=== PATIENT | male | born 1955 | race Caucasian/White ===

== ENCOUNTER 2023-05-31 17:06 | Emergency (ER) | payer OTHER, SELFPAY ==
[2023-05-31 17:28] VITALS: BP 188/110; PULSE 98; RESP 16; TEMP 36.4; O2SAT 96; BMI 23.5
--- NOTE | 2023-05-31 17:54 | ED_ITS ---
HPI - Extremity Problem <Lauren Maldonado PA-C - Last Filed: 05/31/23 18:16> General Chief complaint: Extremity Problem,Nontraumatic Stated complaint: Left side pain, back and leg... Time Seen by Provider: 05/31/23 17:41 Source: patient and family Mode of arrival: Ambulatory History of Present Illness HPI Narrative: 67-year-old male with past medical history chronic lower back pain, hypertension, hypothyroidism presents to the ED with 3 weeks of acute on chronic lower back pain. Patient states that there is no new trauma, but his lower back pain has worsened over the last 3 weeks and he has not been able to get any relief with Aleve. Patient states that the pain is in the left lower back, radiating down the back of his left leg. Patient denies numbness, tingling, weakness, saddle paresthesias, urinary hesitancy, urinary incontinence, bowel incontinence. Patient denies fever, chills, chest pain, shortness of breath, dysuria, urinary urgency, urinary frequency. Patient states that he took some gabapentin this morning from his which gave him some relief. [facility], sent him to the ED since it would be more experience for him to get some immediate pain relief here. Related Data Home Medications Medication Instructions Recorded Confirmed [ACID REFLUX PILL] ##0 04/19/17 [BLOOD PRESSURE MED] ##0 04/19/17 multivitamin (Multiple Vitamins 1 tab PO QDAY ##0 04/19/17 tablet) Previous Rx's Medication Instructions Recorded cyclobenzaprine 10 mg tablet 10 mg PO TID PRN muscle spasm 5 05/31/23 days #15 tabs gabapentin 100 mg capsule 100 mg PO TID 30 days #90 caps 05/31/23 Allergies Allergy/AdvReac Type Severity Reaction Status Date / Time No Known Drug Allergies Allergy Verified 05/31/23 18:14 Review of Systems <Lauren Maldonado PA-C - Last Filed: 05/31/23 18:16> Constitutional Constitutional: Denies chills, Denies fatigue, Denies fever(s), Denies frequent falls, Denies lethargy and Denies weakness Eyes Eyes: Denies change in vision, Denies eye discharge, Denies irritation and Denies loss of vision ENT Ears, Nose, Mouth, and Throat: Denies change in voice, Denies dizziness, Denies neck pain, Denies sore throat and Denies throat swelling Cardiovascular Cardiovascular: Denies chest pain, Denies irregular heart rhythm, Denies lightheadedness, Denies palpitations, Denies dyspnea, Denies dyspnea on exertion and Denies orthopnea Respiratory Respiratory: Denies cough, Denies dyspnea, Denies dyspnea on exertion and Denies wheezing Gastrointestinal Gastrointestinal: Denies abdominal pain, Denies change in bowel habits, Denies diarrhea, Denies nausea and Denies vomiting Musculoskeletal Musculoskeletal: Reports back pain, Denies neck pain, Denies numbness and Reports radiating pain into limb Integumentary/Breasts Skin/Breast: Denies pruritus, Denies erythema, Denies rash and Denies wounds Neurologic Neurologic: Denies behavioral changes, Denies confusion, Denies dizziness, Denies frequent falls, Denies loss of vision, Denies numbness and Denies weakness Psychiatric Psychiatric: Denies anxiety, Denies behavioral changes, Denies confusion, Denies depression, Denies homicidal ideation and Denies suicidal ideation Endocrine Endocrine: Denies fatigue, Denies flushing and Denies palpitations Hematologic/Lymphatic Hematologic/Lymphatic: Denies easy bruising Allergic/Immunologic Allergic/Immunologic: Denies urticaria, Denies throat swelling and Denies wheezing Patient History <Lauren Maldonado PA-C - Last Filed: 05/31/23 18:16> Social History Smoking Status: Current every day smoker Smoking Status: Current every day smoker tobacco type: cigarettes Substance Use Type: does not use Exam <Lauren Maldonado PA-C - Last Filed: 05/31/23 18:16> Narrative Exam Narrative: Const General:?cooperative, healthy appearing and comfortable [facility] Head:?normal to inspection Ears:?hearing grossly normal bilaterally Nose:?external nose normal Face and sinus:?normal facial exam and sinuses nontender Mouth:?oral mucosae normal Throat:?posterior oropharynx normal Eyes General:?appearance normal, both eyes and all related structures Neck Neck:?normal visual inspection and no lymphadenopathy noted Resp Effort & Inspection:?normal respiratory effort Auscultation:?clear to auscultation bilaterally Cardio Rate:?regular rate Rhythm:?regular rhythm Musculoskeletal No midline tenderness to palpation. No paraspinal tenderness to palpation. There is full range of motion. Strength and sensation is intact. Gait is normal. Neuro General:?patient alert, patient awake and patient oriented x3 Initial Vital Signs Initial Vital Signs: Vital Signs Temperature 97.5 F L 05/31/23 17:28 Pulse Rate 98 H 05/31/23 17:28 Respiratory Rate 16 05/31/23 17:28 Blood Pressure 188/110 H 05/31/23 17:28 Pulse Oximetry 96 05/31/23 17:28 Oxygen Delivery Method Room Air 05/31/23 17:28 <Rabia Do DO - Last Filed: 05/31/23 18:59> Initial Vital Signs Initial Vital Signs: Vital Signs Temperature 97.5 F L 05/31/23 17:28 Pulse Rate 98 H 05/31/23 17:28 Respiratory Rate 16 05/31/23 17:28 Blood Pressure 188/110 H 05/31/23 17:28 Pulse Oximetry 96 05/31/23 17:28 Oxygen Delivery Method Room Air 05/31/23 17:28 Course <Lauren Maldonado PA-C - Last Filed: 05/31/23 18:16> Orders Ordered: Discontinued Medications Cyclobenzaprine HCl (Cyclobenzaprine 10 Mg Tablet) 10 mg PO NOW ONE Stop: 05/31/23 18:15 Last Admin: 05/31/23 18:19 Dose: 10 mg Documented By: RB Ketorolac Tromethamine (Ketorolac 30 Mg/Ml Vial) 30 mg IM NOW ONE Stop: 05/31/23 18:15 Last Admin: 05/31/23 18:19 Dose: 30 mg Documented By: RB Vital Signs Vital signs: Vital Signs - 8 hr 05/31/23 17:28 05/31/23 18:24 Temperature 97.5 F L 98.1 F Pulse Rate 98 H 87 Respiratory Rate 16 18 Blood Pressure 188/110 H 165/103 H Pulse Oximetry 96 97 Oxygen Delivery Method Room Air Room Air <Rabia Do DO - Last Filed: 05/31/23 18:59> Orders Ordered: Discontinued Medications Cyclobenzaprine HCl (Cyclobenzaprine 10 Mg Tablet) 10 mg PO NOW ONE Stop: 05/31/23 18:15 Last Admin: 05/31/23 18:19 Dose: 10 mg Documented By: RB Ketorolac Tromethamine (Ketorolac 30 Mg/Ml Vial) 30 mg IM NOW ONE Stop: 05/31/23 18:15 Last Admin: 05/31/23 18:19 Dose: 30 mg Documented By: RB Vital Signs Vital signs: Vital Signs - 8 hr 05/31/23 17:28 05/31/23 18:24 Temperature 97.5 F L 98.1 F Pulse Rate 98 H 87 Respiratory Rate 16 18 Blood Pressure 188/110 H 165/103 H Pulse Oximetry 96 97 Oxygen Delivery Method Room Air Room Air MDM - Extremity (Nontraumatic) <Lauren Maldonado PA-C - Last Filed: 05/31/23 18:16> MDM Narrative Medical decision making narrative: 67-year-old male with past medical history chronic lower back pain, hypertension, hypothyroidism presents to the ED with 3 weeks of acute on chronic lower back pain. From the history and physical, patient's symptoms appear to be a acute exacerbation of the chronic lower back pain. No red flags suspicious for cauda equina or other spinal emergency. Patient was given ketorolac and Flexeril in the ED. Will prescribe gabapentin nad a muscle relaxant. Recommend also using lidocaine patches, Aleve, heat packs for further relief. Patient agrees to follow[facility]up with [facility]. ED return precautions discussed with patient. Patient verbalized understanding. Medical records reviewed: Yes Discharge Plan Departure Patient Disposition: Home Clinical Impression: Lower back pain Qualifiers: Chronicity: unspecified Back pain laterality: left Sciatica presence: with sciatica Sciatica laterality: sciatica of left side Qualified Code(s): M54.42 - Lumbago with sciatica, left side Instructions: Low Back Pain Activity Restrictions/Additional Instructions: You were evaluated in the ED today for lower back pain. Your symptoms today appear to be a acute exacerbation of a chronic back problem. You are being prescribed gabapentin and a muscle relaxant. You may take this in addition to a leave, lidocaine patches, heat packs. Please follow-up with your [facility] doctor as soon as possible for further workup. Return to the ED if you have worsening symptoms, numbness, tingling, weakness, urinary difficulties. Prescriptions: New gabapentin 100 mg capsule 100 mg PO TID 30 Days Qty: 90 0RF cyclobenzaprine 10 mg tablet 10 mg PO TID PRN (Reason: muscle spasm) 5 Days Qty: 15 0RF No Action multivitamin [Multiple Vitamins] 1 EACH tablet 1 tab PO QDAY Qty: 0 [ACID REFLUX PILL] Qty: 0 [BLOOD PRESSURE MED] Qty: 0 Stand Alone Forms: Patient Portal/API ED Sign-out <Rabia Do, DO - Last Filed: 05/31/23 18:59> Cosign ED Attending Cosignature Attestation: I was available for consultation.
[2023-05-31] MEDS: CYCLOBENZAPRINE 10 MG TABLET PO (18:19)
[2023-05-31] MEDS: KETOROLAC 30 MG/ML VIAL IM (18:19)
[2023-05-31 18:24] VITALS: BP 165/103; PULSE 87; RESP 18; TEMP 36.7; O2SAT 97
== END 2023-05-31 18:26 | disposition home or self-care (01) ==
PROVIDERS: Emergency Provider Student in an Organized Health Care Education/Training Program
DX: M54.42 Lumbago with sciatica, left side (principal)
CPT/HCPCS: 96372; 99283; J1885

== ENCOUNTER 2024-11-11 06:10 | Observation (INO) | payer OTHER, SELFPAY ==
[2024-11-11] VITALS (18 sets, daily range): BP systolic 121–201; BP diastolic 62–106; PULSE 71–95; RESP 14–24; TEMP 35.7–36.3; O2SAT 89–98; BMI 24.3
--- NOTE | 2024-11-11 06:24 | EKG_ITS ---
[address] [address] Test Date: 2024-11-11 Pat Name: Noah Sher Department: Room: Gender: Male Fisher Weir: DMITRY ARLEN : 1955 Requested By: Order Number: [id number] Reading MD: López Saucedo MD Measurements Intervals [place] Rate: 87 P: 95 OR: 164 QRS: 258 QRSD: 68 T: 77 QT: 330 QTc: 397 Interpretive Statements Suspect arm lead reversal, interpretation assumes no reversal Normal sinus rhythm Right superior axis deviation Septal infarct , age undetermined NO PRIOR TRACING Electronically Signed On 11-11-2024 14:08:23 PDT by López Saucedo MD
[2024-11-11] MEDS: ALBUTEROL 2.5 MG/3 ML NEB (ADULT) INH ×2 (06:25→06:36)
--- NOTE | 2024-11-11 06:34 | ED_ITS ---
HPI - SOB/Dyspnea <López Sifuentes, DO - Last Filed: 11/11/24 20:09> General Chief Complaint: Shortness of Breath/Dyspnea Stated Complaint: SOB x 2 days, today is worse, congested Time Seen by Provider: 11/11/24 06:14 Source: patient Mode of arrival: Ambulatory Limitations: no limitations History of Present Illness HPI Narrative: 69-year-old gentleman history of high blood pressure, thyroid disease, smoker presents with cough runny nose and shortness of breath that started a month ago but worse today as he woke up feeling smothered. He has cut back on smoking and is down to 3 cigarettes a day. Patient denies fever, chills, body aches, sore throat, nausea, vomiting, diarrhea, or sick contacts. He has never been formally diagnosed with asthma or COPD or emphysema and does not have any inhalers or nebulizers at home. Other than what is stated 14 point review of system is negative. Related Data Home Medications Medication Instructions Recorded Confirmed metoprolol tartrate 50 mg tablet 50 mg PO BID ##0 04/19/17 11/11/24 aspirin 81 mg tablet 81 mg PO DAILY 11/11/24 11/11/24 gabapentin 300 mg tablet 300 mg PO BEDTIME 11/11/24 11/11/24 hydrochlorothiazide 25 mg tablet 25 mg PO DAILY 11/11/24 11/11/24 levothyroxine 125 mcg tablet 125 mcg PO DAILY 11/11/24 11/11/24 (Synthroid) sertraline 50 mg tablet 50 mg PO DAILY 11/11/24 11/11/24 Allergies Allergy/AdvReac Type Severity Reaction Status Date / Time No Known Drug Allergies Allergy Verified 05/31/23 18:14 Review of Systems <López Sifuentes, DO - Last Filed: 11/11/24 20:09> Review of Systems ROS Unobtainable: All systems reviewed & are unremarkable except as noted in HPI and below Patient History <López Sifuentes, DO - Last Filed: 11/11/24 20:09> Medical History (Updated 11/11/24 @ 18:37 by Juany Reddy MD) Hypothyroidism HTN (hypertension) Family History (Updated 11/11/24 @ 18:38 by Juany Reddy MD) Father Emphysema lung Sister Respiratory abnormalities Social History Smoking Status: Current every day smoker alcohol intake: former tobacco type: cigarettes Exam <López Sifuentes, - Last Filed: 11/11/24 20:09> Narrative Exam Narrative: GENERAL: [69] year old patient appears stated age. Well-developed patient, in mild distress but speaking in full sentences HEAD: Atraumatic. Normocephalic. EYES: Pupils equal round and reactive. Extraocular motions intact. No scleral icterus. No injection or drainage. ENT: Nose without bleeding, purulent drainage. Throat without erythema, tonsillar hypertrophy or exudate. Airway patent. NECK: Trachea midline. Non tender CARDIOVASCULAR: Regular rate and rhythm without murmurs, gallops, or rubs. RESPIRATORY: Diffuse wheezes b/l throughout. GASTROINTESTINAL: Abdomen soft, non-tender, nondistended. EXTREMITIES: No edema or joint tenderness. BACK: Nontender without deformity or crepitance. No flank tenderness. NEURO: AOx3. SKIN: No rash or erythema of visible areas Initial Vital Signs Initial Vital Signs: Vital Signs Temperature 97.4 F L 11/11/24 06:15 Pulse Rate 95 H 11/11/24 06:15 Respiratory Rate 22 11/11/24 06:15 Blood Pressure 197/106 H 11/11/24 06:15 Pulse Oximetry 93 11/11/24 06:15 Oxygen Delivery Method Room Air 11/11/24 06:15 <Rabia Do DO - Last Filed: 11/11/24 12:13> Initial Vital Signs Initial Vital Signs: Vital Signs Temperature 97.4 F L 11/11/24 06:15 Pulse Rate 95 H 11/11/24 06:15 Respiratory Rate 22 11/11/24 06:15 Blood Pressure 197/106 H 11/11/24 06:15 Pulse Oximetry 93 11/11/24 06:15 Oxygen Delivery Method Room Air 11/11/24 06:15 Course <López Sifuentes, DO - Last Filed: 11/11/24 20:09> Orders Ordered: ED Orders 11/12/24 05:00 Basic Metabolic Panel Routine Complete Blood Count AUTO DIFF Routine Acetaminophen (Acetaminophen 325 Mg Tablet) 650 mg PO Q6H PRN PRN Reason: Fever/Mild Pain (1-3) Albuterol (Albuterol 2.5 Mg/3 Ml Neb (Adult)) 2.5 mg INH [id number] PRN PRN Reason: Shortness Of Breath Or Wheezing Albuterol/Ipratropium (Albuterol/Ipratropium 3 Ml Ampul) 3 ml INH [id number] [facility] Last Admin: 11/11/24 14:24 Dose: 3 ml Documented By: SAT Aspirin (Aspirin Ec 81 Mg Tablet) 81 mg PO DAILY [facility] Gabapentin (Gabapentin 300 Mg Capsule) 300 mg PO BEDTIME [facility] Hydrochlorothiazide (Hydrochlorothiazide 25 Mg Tablet) 25 mg PO DAILY [facility] Levothyroxine Sodium (Levothyroxine 125 Mcg Tablet) 125 mcg PO DAILY [facility] [place] Methylprednisolone (Methylprednisolone 125 Mg/2 Ml Vial) 80 mg IV Q8H [facility] Last Admin: 11/11/24 18:25 Dose: 80 mg Documented By: Admin: 11/11/24 09:26 Dose: 80 mg Documented By: JUSTYN Metoprolol Tartrate (Metoprolol Ir 50 Mg Tablet) 50 mg PO BID [facility] Naloxone HCl (Naloxone 0.4 Mg/Ml Vial) 0.2 mg IV Q2MIN PRN PRN Reason: Opiate Reversal Sertraline HCl (Sertraline 50 Mg Tablet) 50 mg PO DAILY [facility] Discontinued Medications Albuterol (Albuterol 2.5 Mg/3 Ml Neb (Adult)) 2.5 mg INH NOW ONE Stop: 11/11/24 06:23 Last Admin: 11/11/24 06:25 Dose: 2.5 mg Documented By: MR Albuterol (Albuterol 2.5 Mg/3 Ml Neb (Adult)) 2.5 mg INH NOW ONE Stop: 11/11/24 06:34 Last Admin: 11/11/24 06:36 Dose: 2.5 mg Documented By: MR Albuterol/Ipratropium (Albuterol/Ipratropium 3 Ml Ampul) 3 ml INH NOW ONE Stop: 11/11/24 07:44 Last Admin: 11/11/24 07:46 Dose: 3 ml Documented By: ARNOLDO Methylprednisolone (Methylprednisolone 125 Mg/2 Ml Vial) 125 mg IV NOW ONE Stop: 11/11/24 06:40 Last Admin: 11/11/24 06:54 Dose: 125 mg Documented By: RLC Vital Signs Vital signs: Vital Signs - 8 hr 11/11/24 06:15 11/11/24 06:31 11/11/24 06:31 Temperature 97.4 F L Pulse Rate 95 H 84 Respiratory Rate 22 20 Blood Pressure 197/106 H 201/89 H Pulse Oximetry 93 98 Oxygen Delivery Method Room Air Oxygen Flow Rate 11/11/24 06:48 11/11/24 07:00 11/11/24 07:00 Temperature Pulse Rate 84 78 Respiratory Rate 24 14 Blood Pressure 161/93 H 150/83 H Pulse Oximetry 98 94 Oxygen Delivery Method Nasal Cannula Oxygen Flow Rate 5 11/11/24 07:30 11/11/24 07:30 11/11/24 07:46 Temperature Pulse Rate 76 78 Respiratory Rate 21 20 Blood Pressure 173/89 H Pulse Oximetry 89 L 93 Oxygen Delivery Method Room Air Nasal Cannula Oxygen Flow Rate 1 11/11/24 08:00 11/11/24 08:00 11/11/24 08:30 Temperature Pulse Rate 75 73 Respiratory Rate 16 18 Blood Pressure 138/87 Pulse Oximetry 93 91 Oxygen Delivery Method Nasal Cannula Room Air Oxygen Flow Rate 2 11/11/24 08:30 11/11/24 09:00 11/11/24 09:00 Temperature Pulse Rate 77 Respiratory Rate 17 Blood Pressure 144/76 H 154/84 H Pulse Oximetry 91 Oxygen Delivery Method Room Air Nasal Cannula Oxygen Flow Rate 2 11/11/24 09:06 Temperature Pulse Rate Respiratory Rate Blood Pressure Pulse Oximetry 91 Oxygen Delivery Method Room Air Oxygen Flow Rate <Rabia Do, DO - Last Filed: 11/11/24 12:13> Orders Ordered: ED Orders 11/12/24 05:00 Basic Metabolic Panel Routine Complete Blood Count AUTO DIFF Routine Acetaminophen (Acetaminophen 325 Mg Tablet) 650 mg PO Q6H PRN PRN Reason: Fever/Mild Pain (1-3) Albuterol (Albuterol 2.5 Mg/3 Ml Neb (Adult)) 2.5 mg INH [id number] PRN PRN Reason: Shortness Of Breath Or Wheezing Albuterol/Ipratropium (Albuterol/Ipratropium 3 Ml Ampul) 3 ml INH [id number] [facility] Last Admin: 11/11/24 14:24 Dose: 3 ml Documented By: SAT Aspirin (Aspirin Ec 81 Mg Tablet) 81 mg PO DAILY [facility] Gabapentin (Gabapentin 300 Mg Capsule) 300 mg PO BEDTIME [facility] Hydrochlorothiazide (Hydrochlorothiazide 25 Mg Tablet) 25 mg PO DAILY [facility] [place] Levothyroxine Sodium (Levothyroxine 125 Mcg Tablet) 125 mcg PO DAILY [facility] [place] Methylprednisolone (Methylprednisolone 125 Mg/2 Ml Vial) 80 mg IV Q8H [facility] Last Admin: 11/11/24 18:25 Dose: 80 mg Documented By: Admin: 11/11/24 09:26 Dose: 80 mg Documented By: JUSTYN Metoprolol Tartrate (Metoprolol Ir 50 Mg Tablet) 50 mg PO BID [facility] Naloxone HCl (Naloxone 0.4 Mg/Ml Vial) 0.2 mg IV Q2MIN PRN PRN Reason: Opiate Reversal Sertraline HCl (Sertraline 50 Mg Tablet) 50 mg PO DAILY [facility] Discontinued Medications Albuterol (Albuterol 2.5 Mg/3 Ml Neb (Adult)) 2.5 mg INH NOW ONE Stop: 11/11/24 06:23 Last Admin: 11/11/24 06:25 Dose: 2.5 mg Documented By: MR Albuterol (Albuterol 2.5 Mg/3 Ml Neb (Adult)) 2.5 mg INH NOW ONE Stop: 11/11/24 06:34 Last Admin: 11/11/24 06:36 Dose: 2.5 mg Documented By: MR Albuterol/Ipratropium (Albuterol/Ipratropium 3 Ml Ampul) 3 ml INH NOW ONE Stop: 11/11/24 07:44 Last Admin: 11/11/24 07:46 Dose: 3 ml Documented By: ARNOLDO Methylprednisolone (Methylprednisolone 125 Mg/2 Ml Vial) 125 mg IV NOW ONE Stop: 11/11/24 06:40 Last Admin: 11/11/24 06:54 Dose: 125 mg Documented By: RLC Vital Signs Vital signs: Vital Signs - 8 hr 11/11/24 06:15 11/11/24 06:31 11/11/24 06:31 Temperature 97.4 F L Pulse Rate 95 H 84 Respiratory Rate 22 20 Blood Pressure 197/106 H 201/89 H Pulse Oximetry 93 98 Oxygen Delivery Method Room Air Oxygen Flow Rate 11/11/24 06:48 11/11/24 07:00 11/11/24 07:00 Temperature Pulse Rate 84 78 Respiratory Rate 24 14 Blood Pressure 161/93 H 150/83 H Pulse Oximetry 98 94 Oxygen Delivery Method Nasal Cannula Oxygen Flow Rate 5 11/11/24 07:30 11/11/24 07:30 11/11/24 07:46 Temperature Pulse Rate 76 78 Respiratory Rate 21 20 Blood Pressure 173/89 H Pulse Oximetry 89 L 93 Oxygen Delivery Method Room Air Nasal Cannula Oxygen Flow Rate 1 11/11/24 08:00 11/11/24 08:00 11/11/24 08:30 Temperature Pulse Rate 75 73 Respiratory Rate 16 18 Blood Pressure 138/87 Pulse Oximetry 93 91 Oxygen Delivery Method Nasal Cannula Room Air Oxygen Flow Rate 2 11/11/24 08:30 11/11/24 09:00 11/11/24 09:00 Temperature Pulse Rate 77 Respiratory Rate 17 Blood Pressure 144/76 H 154/84 H Pulse Oximetry 91 Oxygen Delivery Method Room Air Nasal Cannula Oxygen Flow Rate 2 11/11/24 09:06 Temperature Pulse Rate Respiratory Rate Blood Pressure Pulse Oximetry 91 Oxygen Delivery Method Room Air Oxygen Flow Rate MDM - SOB/Dyspnea <López Sifuentes, DO - Last Filed: 11/11/24 20:09> Lab Data 11/11/24 06:20 11/11/24 06:20 Labs: Lab Results 11/11/24 11/11/24 Range/Units 06:20 06:45 WBC 8.1 (4.5-11.0) X10^3/uL RBC 5.99 H (4.5-5.9) X10^6/uL Hgb 17.7 H (13.5-17.5) g/dL Hct 50.9 (41-53) % MCV 85.0 (80-100) fL MCH 29.6 (26-34) PG MCHC 34.9 (30-36) % RDW 18.3 H (11.6-14.8) % Plt Count 449 H (150-400) X10^3/uL Neut % (Auto) 75.4 H (50-75) % Lymph % (Auto) 14.7 L (25-40) % [place] % (Auto) 6.9 (3-14) % Eos % (Auto) 1.7 L (2-4) % Baso % (Auto) 1.3 (0-2) % Neut # (Auto) 6100 (6733-8735) /uL Lymph # (Auto) 1200 (5279-4209) /uL [place] # (Auto) 600 (0-900) /uL Eos # (Auto) 100 (0-450) /uL Baso # (Auto) 100 (0-100) /uL Sodium 133 L (137-145) mmol/L Potassium 3.8 (3.4-5.1) mmol/L Chloride 94 L (98-107) mmol/L Carbon Dioxide 30 (22-32) mmol/L BUN 18 (9-20) mg/dL Creatinine 0.89 (0.66-1.25) mg/dL Estimated GFR > 60 (>60) mL/min BUN/Creatinine Ratio 20.2 (6-22) Glucose 103 H (70-99) mg/dL Calcium 9.5 (8.4-10.2) mg/dL Total Bilirubin 0.8 (0.2-1.3) mg/dL AST 38 (17-59) IU/L ALT 23 (<50) IU/L Alkaline Phosphatase 62 (38-126) U/L Total Creatine Kinase 71 (55-170) U/L Troponin I < 0.012 (0.01-0.034) ng/mL NT-Pro-B Natriuret Pep 43 (<125) pg/mL Total Protein 7.6 (6.3-8.2) g/dL Albumin 4.7 (3.5-5.0) g/dL Globulin 2.9 (1.7-4.1) g/dL Albumin/Globulin Ratio 1.6 (1.0-2.8) Lipase 72 (23-300) U/L SARS-CoV-2 (PCR) Negative (Negative) Influenza A (RT-PCR) Flu a negative (NEGATIVE) Influenza B (RT-PCR) Flu b negative (NEGATIVE) RSV (PCR) Negative (Negative) ECG Data Interpretation: NSR RAD HR 87 MD 164 QRS [address]-t wave change No previous EKG to compare against <Rabia Do, DO - Last Filed: 11/11/24 12:13> Lab Data Labs: Lab Results 11/11/24 11/11/24 Range/Units 06:20 06:45 WBC 8.1 (4.5-11.0) X10^3/uL RBC 5.99 H (4.5-5.9) X10^6/uL Hgb 17.7 H (13.5-17.5) g/dL Hct 50.9 (41-53) % MCV 85.0 (80-100) fL MCH 29.6 (26-34) PG MCHC 34.9 (30-36) % RDW 18.3 H (11.6-14.8) % Plt Count 449 H (150-400) X10^3/uL Neut % (Auto) 75.4 H (50-75) % Lymph % (Auto) 14.7 L (25-40) % [place] % (Auto) 6.9 (3-14) % Eos % (Auto) 1.7 L (2-4) % Baso % (Auto) 1.3 (0-2) % Neut # (Auto) 6100 (5339-5244) /uL Lymph # (Auto) 1200 (7151-0186) /uL [place] # (Auto) 600 (0-900) /uL Eos # (Auto) 100 (0-450) /uL Baso # (Auto) 100 (0-100) /uL Sodium 133 L (137-145) mmol/L Potassium 3.8 (3.4-5.1) mmol/L Chloride 94 L (98-107) mmol/L Carbon Dioxide 30 (22-32) mmol/L BUN 18 (9-20) mg/dL Creatinine 0.89 (0.66-1.25) mg/dL Estimated GFR > 60 (>60) mL/min BUN/Creatinine Ratio 20.2 (6-22) Glucose 103 H (70-99) mg/dL Calcium 9.5 (8.4-10.2) mg/dL Total Bilirubin 0.8 (0.2-1.3) mg/dL AST 38 (17-59) IU/L ALT 23 (<50) IU/L Alkaline Phosphatase 62 (38-126) U/L Total Creatine Kinase 71 (55-170) U/L Troponin I < 0.012 (0.01-0.034) ng/mL NT-Pro-B Natriuret Pep 43 (<125) pg/mL Total Protein 7.6 (6.3-8.2) g/dL Albumin 4.7 (3.5-5.0) g/dL Globulin 2.9 (1.7-4.1) g/dL Albumin/Globulin Ratio 1.6 (1.0-2.8) Lipase 72 (23-300) U/L SARS-CoV-2 (PCR) Negative (Negative) Influenza A (RT-PCR) Flu a negative (NEGATIVE) Influenza B (RT-PCR) Flu b negative (NEGATIVE) RSV (PCR) Negative (Negative) Imaging Data Chest x-ray: Radiologist's Impression: Preliminary report no acute cardiopulmonary process MDM Narrative Medical decision making narrative: -patient signed out to me by Dr. Sifuentes, seen evaluated patient myself. Reports that he started having significant shortness of breath this morning. He has 50 pack your smoking history but never diagnosed with COPD. Received DuoNeb treatment Solu-Medrol prior to my evaluation which has not helped. However still hypoxic requiring 1-2 L at 87% room air. Still quite tight. Blood work has been reviewed Leukocytosis no anemia Sodium 133 mother electrolyte abnormality glucose 103 Bilirubin liver enzymes within normal limits Troponin negative BNP 43 Viral panel negative EKGs no ischemic changes Chest x-ray no acute cardiopulmonary process Patient has received multiple breathing treatments along with Solu-Medrol. He ambulated to the bathroom on room air when he returned he was 88% on room air. Patient does not have not any evidence of fluid overload negative BNP negative troponin. Smoking history but no diagnosis he has emphysema or COPD. However his symptoms did improve with albuterol. He was x-ray is clear no evidence of pneumonia no leukocytosis. At this time due to persistent hypoxia patient needs to be admitted for further treatment and workup. Pulmonary embolism was considered however no other risk factors symptoms improve with albuterol. Symptoms are most consistent with a COPD exacerbation. Dr. Reddy accept to observation Discharge Plan Departure Patient Disposition: Admitted as Observation Clinical Impression: COPD exacerbation Admit Date/Time: 11/11/24 09:15 Admit Provider: Juany Reddy
--- NOTE | 2024-11-11 06:34 | DI.RAD.S_ITS ---
PROCEDURE: XR CHEST 1V INDICATIONS: chest pain TECHNIQUE: One view of the chest was acquired. COMPARISON: None. FINDINGS: Surgical changes and devices: None. Lungs and pleura: Lungs are clear. No pleural effusions or pneumothorax. Hyperinflation and chronic interstitial changes Mediastinum: Mediastinal contours appear normal. Heart size is normal. Bones and chest wall: No suspicious bony lesions. Overlying soft tissues appear unremarkable. IMPRESSION: Hyperinflation and chronic interstitial changes Approved by: Sherman Zepeda M.D. on 11/11/2024 at 8:11
[2024-11-11 06:50] LABS: Alanine Aminotransferase 23 IU/L (<50); Albumin 4.7 g/dL (3.5-5.0); Albumin Globulin Ratio 1.6 (1.0-2.8); Alkaline Phosphatase 62 U/L (38-126); Aspartate Aminotransferase 38 IU/L (17-59); BUN Creatinine Ratio 20.2 (6-22); Bilirubin Total 0.8 mg/dL (0.2-1.3); Blood Urea Nitrogen 18 mg/dL (9-20); Calcium 9.5 mg/dL (8.4-10.2); Carbon Dioxide 30 mmol/L (22-32); Chloride 94 mmol/L (98-107); Creatine Kinase 71 U/L (55-170); Estimated Glomerular Filt Rate > 60 mL/min (>60); Globulin 2.9 g/dL (1.7-4.1); Glucose 103 mg/dL (70-99); HEMOLYSIS 24 (0-50); Lipase 72 U/L (23-300); Potassium 3.8 mmol/L (3.4-5.1); Sodium 133 mmol/L (137-145); Total Protein 7.6 g/dL (6.3-8.2)
[2024-11-11] MEDS: methylPREDNISolone 125 MG/2 ML VIAL IV (06:54)
[2024-11-11 06:56] LABS: Add Manual Diff / Slide Review NO; Basophils Absolute Auto 100 /uL (0-100); Basophils Percent Auto 1.3 % (0-2); Eosinophils Absolute Auto 100 /uL (0-450); Eosinophils Percent Auto 1.7 % (2-4); Hematocrit 50.9 % (41-53); Hemoglobin 17.7 g/dL (13.5-17.5); Lymphocytes Absolute Auto 1200 /uL (1100-4500); Lymphocytes Percent Auto 14.7 % (25-40); Mean Corpuscular HGB Conc 34.9 % (30-36); Mean Corpuscular Hemoglobin 29.6 PG (26-34); Monocytes Absolute Auto 600 /uL (0-900); Monocytes Percent Auto 6.9 % (3-14); Neutrophils Absolute Auto 6100 /uL (1500-7000); Neutrophils Percent Auto 75.4 % (50-75); Platelet Count 449 X10^3/uL (150-400); Red Blood Cell Count 5.99 X10^6/uL (4.5-5.9); Red Cell Distribution Width 18.3 % (11.6-14.8); White Blood Cell Count 8.1 X10^3/uL (4.5-11.0)
[2024-11-11 07:00] LABS: NT-proBNP (BNP-Adult 18+) 43 pg/mL (<125)
[2024-11-11 07:02] LABS: Troponin I < 0.012 ng/mL (0.01-0.034)
[2024-11-11 07:38] LABS: Influenza A - CEPHEID Flu A NEGATIVE (NEGATIVE); Influenza B - CEPHEID Flu B NEGATIVE (NEGATIVE); Respiratory Syncytial Virus Negative (Negative)
[2024-11-11 07:44] LABS: COVID-19 CEPHEID 4-PLEX PCR Negative (Negative)
[2024-11-11] MEDS: ALBUTEROL/IPRATROPIUM 3 ML AMPUL INH ×3 (07:46→20:06)
--- NOTE | 2024-11-11 08:18 | RT ---
pt fer neb tx well, on 1 lpm nc and neb tx given via Air. No distress noted, pt states he feels much better
[2024-11-11] MEDS: methylPREDNISolone 125 MG/2 ML VIAL 80 MG IV ×2 (09:26→18:25)
--- NOTE | 2024-11-11 18:35 | PM.HP.1 ---
History of Present Illness History of Present Illness Chief complaint: SOB x 2 days, today is worse, congested Narrative: 69-year-old male with history of hypertension, hypothyroidism and tobacco dependence who presented to the emergency department with a one-week history of worsening cough and shortness of breath. He states he initially thought he had bronchitis but states his symptoms got progressively worse. He denies any fevers or sputum production. Did have a sore throat but attributes that to all of the coughing. He does state he is feeling much better this evening than he did this morning when he presented to the emergency department. He does receive his care through the [facility] and has an appointment there in the coming weeks. [facility] Medical History (Updated 11/11/24 @ 18:37 by Juany Reddy MD) Hypothyroidism HTN (hypertension) Family History (Updated 11/11/24 @ 18:38 by Juany Reddy MD) Father Emphysema lung Sister Respiratory abnormalities Social History Smoking Status: Current every day smoker alcohol intake: former Meds Home Medications and Allergies Home Medications Medication Instructions Recorded Confirmed Type metoprolol tartrate 50 mg tablet 50 mg PO BID ##0 04/19/17 11/11/24 History aspirin 81 mg tablet 81 mg PO DAILY 11/11/24 11/11/24 History gabapentin 300 mg tablet 300 mg PO BEDTIME 11/11/24 11/11/24 History hydrochlorothiazide 25 mg tablet 25 mg PO DAILY 11/11/24 11/11/24 History levothyroxine 125 mcg tablet 125 mcg PO DAILY 11/11/24 11/11/24 History (Synthroid) sertraline 50 mg tablet 50 mg PO DAILY 11/11/24 11/11/24 History Allergies Allergy/AdvReac Type Severity Reaction Status Date / Time No Known Drug Allergies Allergy Verified 05/31/23 18:14 Review of Systems Review of Systems Narrative: All other systems were reviewed negative Exam Vital Signs (past 8 hours): - 11/11/24 11:39 11/11/24 14:24 11/11/24 16:00 Temperature 96.3 F L Pulse Rate 80 87 Respiratory Rate 16 17 Blood Pressure 145/73 H Pulse Oximetry 93 94 92 Oxygen Delivery Method Nasal Cannula Nasal Cannula Oxygen Flow Rate 2 1 1.5 Oxygen Delivery Method Nasal Cannula Oxygen Flow Rate 1.5 Narrative Exam Narrative: GEN: Very pleasant middle-aged male, Alert and oriented x3, no acute distress HEENT: Normocephalic, face symmetric, pupils equal round reactive to light, extraocular movements intact, sclerae anicteric, conjunctiva clear, nares patent, oropharynx reveals an intact soft and hard palate with moist mucous membranes, he does have a round raised vascular appearing lesion on the left side of his tongue, edentulous NECK: Supple, no lymphadenopathy, thyroid without enlargement or nodularity, carotids no bruits CHEST: Respiratory excursions symmetric, coarse but clear to auscultation bilaterally CV: Regular rate and rhythm, no murmurs, rubs, gallops, PMI nondisplaced ABD: Soft, nontender, nondistended, bowel sounds present in all 4 quadrants, no organomegaly or masses appreciated EXTR: Warm, well perfused, no clubbing/cyanosis/edema SKIN: Warm and dry, without rash, significant sun damage noted to his facial skin NEURO: Alert and oriented x3, nonfocal PSYCH: Mood and affect is within normal limits, judgment and insight are appropriate Objective Labs 11/11/24 06:20 11/11/24 06:20 Labs: Laboratory Results - last 24 hr 11/11/24 11/11/24 06:20 06:45 WBC 8.1 RBC 5.99 H Hgb 17.7 H Hct 50.9 MCV 85.0 MCH 29.6 MCHC 34.9 RDW 18.3 H Plt Count 449 H Neut % (Auto) 75.4 H Lymph % (Auto) 14.7 L [place] % (Auto) 6.9 Eos % (Auto) 1.7 L Baso % (Auto) 1.3 Neut # (Auto) 6100 Lymph # (Auto) 1200 [place] # (Auto) 600 Eos # (Auto) 100 Baso # (Auto) 100 Sodium 133 L Potassium 3.8 Chloride 94 L Carbon Dioxide 30 BUN 18 Creatinine 0.89 Estimated GFR > 60 BUN/Creatinine Ratio 20.2 Glucose 103 H Calcium 9.5 Total Bilirubin 0.8 AST 38 ALT 23 Alkaline Phosphatase 62 Total Creatine Kinase 71 Troponin I < 0.012 NT-Pro-B Natriuret Pep 43 Total Protein 7.6 Albumin 4.7 Globulin 2.9 Albumin/Globulin Ratio 1.6 Lipase 72 SARS-CoV-2 (PCR) Negative Influenza A (RT-PCR) Flu a negative Influenza B (RT-PCR) Flu b negative RSV (PCR) Negative Assessment & Plan Assessment & Plan narrative: 1. COPD exacerbation Patient will be admitted secondary to COPD exacerbation. He has a 50 pack year smoking history. He is presently smoking 3-4 cigarettes daily and attempting to cut down further. He does have a goal to quit entirely. Will place on Solu-Medrol 80 mg IV q.[address] on DuoNebs q.i.d. and albuterol nebs q.4 PRN. No antibiotics indicated. He does require supplemental oxygen as he had saturation of approximately 88% in room air in the emergency department. Anticipate he will be able to wean off of this in the morning. 2. Tobacco dependence He is smoking 3-4 cigarettes daily. At this point he does not appear to require a nicotine patch. 3. Hypertension Will resume his usual home medications 4. Hypothyroidism Will resume his thyroid replacement 5. Vascular appearing tongue lesion He reports this has been present for quite some time. He denies any history of biting his tongue as he is edentulous. It is not painful. He states he has a follow-up appointment at the [facility] soon. Encouraged him to request an ENT referral. Code status Full Prophylaxis Low Peg score Disposition Admit under observation status. Anticipate discharge home tomorrow Time-Based Coding :: [TOTAL MINUTES] spent with patient and on the chart (including review of chart, obtaining history, exam, reviewing outside data, placing orders, documenting exam and treatment plan, and counseling patient) on [DATE].
[2024-11-11] MEDS: GABAPENTIN 300 MG CAPSULE PO (20:23)
[2024-11-11] MEDS: METOPROLOL IR 50 MG TABLET PO (20:23)
[2024-11-12] MEDS: methylPREDNISolone 125 MG/2 ML VIAL 80 MG IV (00:23)
[2024-11-12 02:00] VITALS: BP 117/70; PULSE 75; RESP 18; TEMP 35.8; O2SAT 91
[2024-11-12 03:56] LABS: BUN Creatinine Ratio 32.5 (6-22); Blood Urea Nitrogen 25 mg/dL (9-20); Calcium 9.3 mg/dL (8.4-10.2); Carbon Dioxide 28 mmol/L (22-32); Chloride 97 mmol/L (98-107); Estimated Glomerular Filt Rate > 60 mL/min (>60); Glucose 147 mg/dL (70-99); HEMOLYSIS < 15 (0-50); Potassium 3.7 mmol/L (3.4-5.1); Sodium 132 mmol/L (137-145)
[2024-11-12 03:59] LABS: Add Manual Diff / Slide Review NO; Basophils Absolute Auto 0 /uL (0-100); Basophils Percent Auto 0.1 % (0-2); Eosinophils Absolute Auto 0 /uL (0-450); Hematocrit 48.6 % (41-53); Hemoglobin 16.4 g/dL (13.5-17.5); Lymphocytes Absolute Auto 600 /uL (1100-4500); Lymphocytes Percent Auto 5.6 % (25-40); Mean Corpuscular HGB Conc 33.8 % (30-36); Mean Corpuscular Hemoglobin 28.7 PG (26-34); Mean Corpuscular Volume 85.1 fL (80-100); Monocytes Absolute Auto 300 /uL (0-900); Monocytes Percent Auto 2.9 % (3-14); Neutrophils Absolute Auto 10400 /uL (1500-7000); Neutrophils Percent Auto 91.4 % (50-75); Platelet Count 414 X10^3/uL (150-400); Red Blood Cell Count 5.71 X10^6/uL (4.5-5.9); Red Cell Distribution Width 18.3 % (11.6-14.8); White Blood Cell Count 11.4 X10^3/uL (4.5-11.0)
[2024-11-12 08:00] VITALS: BP 138/82; PULSE 74; RESP 16; TEMP 36.1; O2SAT 92
[2024-11-12] MEDS: ALBUTEROL/IPRATROPIUM 3 ML AMPUL INH (08:39)
--- NOTE | 2024-11-12 08:50 | PM.DS.1 ---
History of Present Illness History of Present Illness Chief complaint: SOB x 2 days, today is worse, congested Narrative: 69-year-old male with history of hypertension, hypothyroidism and tobacco dependence who presented to the emergency department with a one-week history of worsening cough and shortness of breath. He states he initially thought he had bronchitis but states his symptoms got progressively worse. He denies any fevers or sputum production. Did have a sore throat but attributes that to all of the coughing. He does state he is feeling much better this evening than he did this morning when he presented to the emergency department. He does receive his care through the [facility] and has an appointment there in the coming weeks. Discharge Providers Provider Date of admission: 11/11/24 09:15 Discharge Date: 11/12/24 Consults: 11/11/24 09:17 Consult to Cardio/Pulmonary Rehabilitation Routine Comment: Physician Instructions: Evaluate and treat Discharge provider: Juany Reddy MD Summary Hospital Course Discharge Diagnosis: 1. COPD exacerbation, improved 2. Tobacco dependence 3. Hypertension 4. Hypothyroidism 5. Vascular appearing tongue lesion 6. 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 He was placed on IV Solu-Medrol as well as nebulizer treatments. He drastically improved over the course of the day of admission. However, he continued to require oxygen therapy. On the day of discharge, he reported he was approaching his baseline. Was successfully weaned off oxygen and was able to ambulate without significant hypoxia. He did not meet criteria for home O2. He is being sent out with nebulizer treatments and a prednisone taper. We did discuss having his tongue lesion assessed by ear nose and throat physician. He has follow-up with the [facility] in the coming weeks and will seek a referral at that time. Status at Discharge Cognitive/behavioral status at discharge: at baseline, oriented Functional status at discharge: independent ambulation Overall status at discharge: patient is progressing back to baseline Time Spent with Patient Time spent: Less than 30 minutes Exam Vital Signs (past 8 hours): - 11/12/24 02:00 11/12/24 08:00 Temperature 96.5 F L 97.0 F L Pulse Rate 75 74 Respiratory Rate 18 16 Blood Pressure 117/70 138/82 Pulse Oximetry 91 92 Oxygen Flow Rate 2 2 Oxygen Delivery Method Nasal Cannula Oxygen Flow Rate 2 Narrative Exam Narrative: GEN: Very pleasant middle-aged male, Alert and oriented x 3, NAD HEENT:NC, Face symmetric CHEST: Respiratory excursions symmetric, coarse but CTAB CV: RRR, no M/R/G ABD: Soft, NT/ND, BT present in all 4 quadrants, no organomegaly or masses EXTR: warm, well perfused, no C/C/E SKIN: warm and dry, no rash NEURO: Alert and oriented x 3, nonfocal I personally walked the patient with a portable oximeter in room air, and the lowest saturation achieved was 88% Objective Labs 11/12/24 03:15 11/12/24 03:15 Labs: Laboratory Results - last 24 hr 11/12/24 03:15 WBC 11.4 H RBC 5.71 Hgb 16.4 Hct 48.6 MCV 85.1 MCH 28.7 MCHC 33.8 RDW 18.3 H Plt Count 414 H Neut % (Auto) 91.4 H Lymph % (Auto) 5.6 L [place] % (Auto) 2.9 L Eos % (Auto) 0.0 L Baso % (Auto) 0.1 Neut # (Auto) 54971 H Lymph # (Auto) 600 L [place] # (Auto) 300 Eos # (Auto) 0 Baso # (Auto) 0 Sodium 132 L Potassium 3.7 Chloride 97 L Carbon Dioxide 28 BUN 25 H Creatinine 0.77 Estimated GFR > 60 BUN/Creatinine Ratio 32.5 H Glucose 147 H Calcium 9.3 PFSH Medical History (Updated 11/11/24 @ 18:37 by Juany Reddy MD) Hypothyroidism HTN (hypertension) Family History (Updated 11/11/24 @ 18:38 by Juany Reddy MD) Father Emphysema lung Sister Respiratory abnormalities Social History Smoking Status: Current every day smoker alcohol intake: former Discharge Plan Discharge Plan Patient Disposition: Home Provider Discharge Comment: You were admitted with a COPD exacerbation. You will discharge with prescriptions for nebulized medications. You will take ipratropium/albuterol scheduled (if four times a day is too hard, please take it 3 times daily). The albuterol is as needed when you are short of breath. The prednisone is a tapered medication. It is best to take it in the morning with food. Return to the ED for: Increasing shortness of breath Fever, chills, increased cough w/colored phlegm production Please remember to get a referral to ENT to get the tongue spot checked out Discharge orders & Medications Prescriptions: New ipratropium-albuterol 0.5 mg-3 mg(2.5 mg base)/3 mL Solution For Nebulization 3 ml INH [id number] Qty: 180 0RF albuterol sulfate 2.5 mg /3 mL (0.083 %) Solution For Nebulization 2.5 mg INH [id number] PRN (Reason: Shortness Of Breath Or Wheezing) Qty: 180 0RF prednisone 20 mg tablet 40 mg PO DAILY Qty: 15 0RF Rx Instructions: for 3 days, then 1.5 tabs daily x 3 days, then 1 tab daily x 3 days, then 0.5 tabs daily x 3 days, then stop Continued metoprolol tartrate 50 mg Tablet 50 mg PO BID Qty: 0 Rx Instructions: unknown name aspirin 81 mg Tablet 81 mg PO DAILY levothyroxine [Synthroid] 125 mcg Tablet 125 mcg PO DAILY hydrochlorothiazide 25 mg Tablet 25 mg PO DAILY sertraline 50 mg Tablet 50 mg PO DAILY gabapentin 300 mg Tablet 300 mg PO BEDTIME Discharge Health Status Multidrug resistant organism: No MDRO Diet/Activity/Treatments Diet: Diet as Tolerated and Regular Activity: As tolerated Oxygen: N/A Visit Report/Discharge Packet Instructions: Chronic Obstructive Pulmonary Disease, COPD: When to Call for Help, Physical Activity for People with COPD Stand Alone Forms: Patient Portal/API, Stroke Signs & Symptoms Discharge Data Attending Provider: Juany Reddy Admit Date/Time: 11/11/24 09:15
[2024-11-12] MEDS: METOPROLOL IR 50 MG TABLET PO (09:09)
[2024-11-12] MEDS: hydroCHLOROthiazide 25 MG TABLET PO (09:09)
[2024-11-12] MEDS: ASPIRIN EC 81 MG TABLET PO (09:09)
[2024-11-12] MEDS: SERTRALINE 50 MG TABLET PO (09:09)
[2024-11-12] MEDS: LEVOTHYROXINE 125 MCG TABLET PO (09:09)
--- NOTE | 2024-11-12 10:29 | PC.NURSE ---
Pt is dressed and ready for discharge home with Spouse. Pt has removed his own IV. Went over d/c instructions with Pt and S.O. - discussed d/c meds, time of last dose, reviewed stroke education, reminded Pt to get up slowly when taking metoprolol, drink plenty of fluids to prevent constipation or dehydration, pace yourself to reduce shortness of breath, and to follow [facility] as [facility]. Pt and S.O. denied further questions and Pt was taken out via w/c by [employer] to POV with S.O. and all belongings.
== END 2024-11-12 10:33 | disposition home or self-care (01) ==
LOC: ED 09:13 → AC 09:16
PROVIDERS: Family Medicine; Admitting Provider Family Medicine; Emergency Provider Emergency Medicine; Referring Provider Emergency Medicine; Visit Provider Family Medicine
DX: J44.1 Chronic obstructive pulmonary disease with (acute) exacerbation (principal); R09.02 Hypoxemia; K14.8 Other diseases of tongue; I10 Essential (primary) hypertension; E03.9 Hypothyroidism, unspecified; F17.210 Nicotine dependence, cigarettes, uncomplicated; Z11.52 Encounter for screening for COVID-19
CPT/HCPCS: 0241U; 36415; 71045; 80048; 80053; 82550; 83690; 83880; 84484; 85025; 93005; 93010; 94640; 94762; 96374; 99285; G0378; J2919; J7613

== ENCOUNTER → 2025-02-09 07:07 | Outpatient (CLI) | payer OTHER, SELFPAY ==
[2024-11-11 10:24] VITALS: BMI 24.3
[2025-02-09 08:26] LABS: Prostate Specific Antigen 75.7 ng/mL (0.10-4.00)
== END ==
PROVIDERS: Referring Provider Urology; Visit Provider Urology
DX: R97.20 Elevated prostate specific antigen [PSA] (principal); N40.1 Benign prostatic hyperplasia with lower urinary tract symptoms
CPT/HCPCS: 36415; 84153

== ENCOUNTER → 2025-04-03 09:53 | Outpatient (CLI) | payer OTHER, SELFPAY ==
[2024-11-11 10:24] VITALS: BMI 24.3
--- NOTE | 2025-04-03 09:54 | DI.CT.S_ITS ---
PROCEDURE: CT CHEST ABD PEL W CON INDICATIONS: 69 y/o M w/ high-risk prostate cancer, eval for mets TECHNIQUE: After the administration of intravenous contrast, 5 mm thick sections acquired from the lung apices to the symphysis. 5 mm coronal and sagittal reformats were performed, with additional 7 mm MIP reformats through the lungs. For radiation dose reduction, the following was used: automated exposure control, adjustment of mA and/or kV according to patient size. COMPARISON: None. FINDINGS: Image quality: Excellent. CHEST: Lower Neck: No enlarged lymph nodes. Thyroid: Diminutive thyroid gland. Axillae: No enlarged lymph nodes. Chest Wall: Unremarkable. Lungs and Pleura: Moderate upper lobe emphysematous changes. Linear nodular opacity in the lateral right upper lobe, 3/93, 6 mm. Small pleural-based opacity posteriorly in the right lower lobe with mild overlying ground-glass opacity. Minor lingular platelike atelectasis. No other nodule, mass, consolidation, or airway abnormality. No pleural effusions. Heart: Heart size is normal. No pericardial effusion. Mild coronary calcification. Thoracic Vessels: The aorta and pulmonary arteries demonstrate normal size. Moderate arch calcification. Mediastinum and Shivani: No enlarged lymph nodes. Esophagus: No wall thickening. No hiatal hernia. ABDOMEN: Liver: No solid mass. Gallbladder: No wall thickening or calcified stones. Biliary ducts: No biliary dilation. Pancreas: Normal size and morphology without visible ductal dilatation or inflammation. Spleen: Size is within normal limits. Adrenal Glands: Mild bilateral low-density smooth thickening. No nodules. Kidneys and Ureters: Symmetric enhancement. No nephrolithiasis or hydronephrosis. No visible mass or cyst requiring follow up. No hydroureter. Stomach and Bowel: Decompressed stomach. No small bowel obstruction. Increased quantity of solid stool in the proximal colon. Diverticulosis from the mid transverse colon through the sigmoid. Peritoneum: No free fluid, fluid collections, free air, or significant intraperitoneal fat stranding. Ventral Wall: Tiny fat containing umbilical hernia. Abdominal Nodes: No retroperitoneal or mesenteric adenopathy by size criteria. Vessels: The abdominal aorta, IVC, and portal vein are of normal caliber. Moderate abdominal aortic atherosclerotic calcification. PELVIS: Pelvic Organs: Mildly enlarged prostate gland with left posterolateral enhancement. Contour is grossly normal, though this is not accurately assessed by CT. Bladder: No bladder wall thickening, accounting for underdistention. Pelvic Nodes: No enlarged lymph nodes. Miscellaneous: No inguinal hernias are seen. Bones: No aggressive osseous abnormality. Mild degenerative changes. IMPRESSION: No suspicious findings to suggest metastatic disease in the chest, abdomen, or pelvis. No suspicious adenopathy. Right upper lobe linear lung nodule is probably post infectious or inflammatory. Small pleural-based opacity in the right lower lung is also nonspecific. Colonic diverticulosis. Mild prostate gland enlargement with area of focal enhancement which may indicate patient's known neoplasm. Dictated by: Nancy Prado M.D. on 04/03/2025 at 12:06 Approved by: Nancy Prado M.D. on 04/03/2025 at 12:23
[2025-04-03 10:27] LABS: Estimated Glomerular Filt Rate > 60 mL/min (>60)
== END ==
PROVIDERS: Referring Provider Urology; Visit Provider Urology
DX: C61 Malignant neoplasm of prostate (principal); I25.10 Atherosclerotic heart disease of native coronary artery without angina pectoris; K57.30 Diverticulosis of large intestine without perforation or abscess without bleeding; N40.0 Benign prostatic hyperplasia without lower urinary tract symptoms; I70.0 Atherosclerosis of aorta
CPT/HCPCS: 36415; 71260; 74177; 82565; Q9967

== ENCOUNTER → 2025-04-24 09:29 | Outpatient (CLI) | payer OTHER, SELFPAY ==
[2024-11-11 10:24] VITALS: BMI 24.3
--- NOTE | 2025-04-24 09:30 | DI.NM.S_ITS ---
PROCEDURE: NM BONE SCAN WHOLE BODY RADIOPHARMACEUTICAL: 22 mCi Tc-99m MDP IV. INDICATIONS: 69 y/o M w/ high-risk prostate cancer, eval for mets TECHNIQUE: Delayed whole-body scintigrams were obtained approximately 3-4 hours after intravenous injection of radiotracer. Anterior and posterior views were acquired from vertex to feet. Additional left and right oblique views of the pelvis were obtained. COMPARISON: [facility], CT, CT CHEST ABD PEL W CON, 04/03/2025, 10:39. FINDINGS: Normal soft tissue, renal and bladder activity. Scattered areas of cervical, thoracic and lumbar uptake with a scintigraphic configuration and appearance most consistent with degenerative disease. Bilateral wrist and shoulder activity is most likely degenerative in origin. No concerning uptake suspicious for osteoblastic or osteolytic metastases. IMPRESSION: No scintigraphic findings concerning for osteoblastic metastases. Dictated by: Yudelka Flores M.D. on 04/25/2025 at 14:41 Approved by: Yudelka Flores M.D. on 04/25/2025 at 14:46
== END ==
PROVIDERS: Visit Provider Urology
DX: C61 Malignant neoplasm of prostate (principal)
CPT/HCPCS: 78306; A9503